=== PATIENT | female | born 1955 | race African-American/Black ===

== ENCOUNTER 2017-03-27 12:15 | Outpatient (CLI) | payer MEDICARE, MEDICAID ==
--- NOTE | 2017-03-27 12:36 | RAD ---
CHEST 2 VIEWS: HISTORY: Cough. FINDINGS: Cardiac silhouette and pulmonary vasculature are unremarkable. Calcified granulomata are consistent with healed granulomatous disease. Mediastinum is midline. There is no confluent airspace consolida tion or evidence of pneumothorax. IMPRESSION: No active cardiopulmonary abnormalities are demonstrated. POS: [facility]
[2017-03-27 12:49] LABS: ALT (SGPT) 15 U/L (8-55); AST (SGOT) 19 U/L (5-34); Alkaline Phosphatase 140 U/L (40-150); Anion Gap 12 mmol/L (10-20); BUN (Urea Nitrogen) 8 mg/dL (9.8-20.1); Bilirubin, Total 0.7 mg/dL (0.2-1.2); Calc. Creatinine Clearance 0 mL/min (70-130); Calcium 10.1 mg/dL (7.8-10.44); Carbon Dioxide 26 mmol/L (23-31); Chloride 106 mmol/L (98-107); Cholesterol 106 mg/dl (< 200 Desired); Estimated GFR-MDRD Greater than 90; Globulin 3.3 g/dL (2.4-3.5); LDL Cholesterol, Calculated 60 mg/dL; Protein, Total 7.3 g/dL (6.0-8.3)
[2017-03-27 12:56] LABS: #Basophils 0.1 thou/uL (0.0-0.2); #Eosinphils 0.1 thou/uL (0.0-0.7); #Lymphocytes 2.9 thou/uL (1.20-3.40); #Monocytes 0.7 thou/uL (0.11-0.59); #Neutrophils 2.8 thou/uL (1.40-6.50); %Basophils 0.9 % (0.0-1.0); %Eosinophils 2.1 % (0.0-10.0); %Lymphocytes 43.5 % (21.0-51.0); %Monocytes 10.9 % (0.0-10.0); Hematocrit 45.7 % (36.0-47.0); Mean Platelet Volume 9.8 fL (7.4-10.4); Red Blood Cell (RBC) Count 5.28 mill/uL (4.20-5.40); White Blood Cell (WBC) Count 6.6 thou/uL (4.8-10.8)
[2017-03-27 14:33] LABS: Hemoglobin A1c 11.3 % (4.0-6.0)
[2017-03-27 15:37] LABS: Microalbumin Urine 11.9 mg/dL (0.5-50.0)
== END 2017-03-27 12:16 | disposition home or self-care (01) ==
LOC: SCSRAD 12:15
PROVIDERS: ATTEND Family Medicine
DX: R05 Cough (principal); E11.59 Type 2 diabetes mellitus with other circulatory complications
CPT/HCPCS: 36415; 71020; 80053; 80061; 82043; 83036; 84439; 84443; 85025

== ENCOUNTER 2018-01-01 09:32 | Outpatient (CLI) | payer MEDICARE, MEDICAID ==
--- NOTE | 2018-01-01 11:19 | MMO ---
BILATERAL DIGITAL SCREENING MAMMOGRAMS: Date: 01/01/18 HISTORY: 62-year-old female presents for digital screening mammogram. COMPARISON: 12/11/15, 11/21/14, and 11/15/13. FINDINGS: This patient's mammogram was interpreted with the assistance of computer-aided detection. The breasts are heterogeneously dense, which can obscure small masses. There are very extensive, typi pj benign, calcifications, including multiple areas of stable clustered microcalcifications bilate rally. Multiple circumscribed masses noted in both breasts, which appear stable. No evidence for dire ct or indirect evidence of malignancy. IMPRESSION: BIRADS 2: Benign Finding(s) Continue routine screening. POS: [facility]
== END 2018-01-01 09:33 | disposition home or self-care (01) ==
LOC: SCSMAMMO 09:32
PROVIDERS: ATTEND Family Medicine
DX: Z12.31 Encounter for screening mammogram for malignant neoplasm of breast (principal)
CPT/HCPCS: 77067

== ENCOUNTER 2018-05-04 21:07 | Observation (INO) | payer MEDICARE, OTHER ==
[2018-05-04] MEDS ORDERED: Nitroglycerin 0.4 MG TAB (25 Tab Bottle) SL PRN (22:07)
[2018-05-04] MEDS ORDERED: Senokot S 8.6-50 MG TAB PO PRN (22:08)
[2018-05-04] MEDS ORDERED: Ondansetron ODT 4 MG TAB PO PRN (22:08)
[2018-05-04] MEDS ORDERED: Dextrose 50% Abboject 50 ML SYRINGE SLOW IVP PRN (22:08)
[2018-05-04] MEDS ORDERED: Bisacodyl 5 MG TAB PO PRN (22:08)
[2018-05-04] MEDS ORDERED: Nitroglycerin 0.4 MG TAB (25 Tab Bottle) PO PRN (22:08)
[2018-05-04] MEDS ORDERED: Dextrose 5% in Water 1,000 ML IV PRN (22:08)
[2018-05-04] MEDS ORDERED: HumaLOG 300 UNITS/3 ML VIAL SC PRN (22:08)
[2018-05-04] MEDS ORDERED: Ondansetron PF 4 MG/2 ML Vial IVP PRN (22:08)
[2018-05-04] MEDS ORDERED: Sodium Chloride 0.9% 1,000 ML IV SCH (22:15)
[2018-05-04] MEDS ORDERED: Acetaminophen 500 MG TAB ONE (22:56)
[2018-05-04 23:45] VITALS: BMI 26.6
[2018-05-05] MEDS: Morphine 4 MG/ML VIAL SLOW IVP PRN ×4 (01:08→22:39)
[2018-05-05 04:46] LABS: #Basophils 0.1 thou/uL (0.0-0.2); #Eosinphils 0.1 thou/uL (0.0-0.7); #Lymphocytes 3.2 thou/uL (1.20-3.40); #Neutrophils 2.5 thou/uL (1.40-6.50); %Basophils 1.2 % (0.0-1.0); %Eosinophils 1.7 % (0.0-10.0); %Lymphocytes 46.6 % (21.0-51.0); %Monocytes 14.4 % (0.0-10.0); %Neutrophils 36.1 % (42.0-75.0); Hemoglobin 13.4 g/dL (12.0-16.0); Mean Corpuscular HGB CONC 32.6 g/dL (32.0-36.0); Mean Corpuscular Hemoglobin 28.9 pg (27.0-31.0); Mean Corpuscular Volume 88.6 fL (78.0-98.0); Mean Platelet Volume 8.8 fL (7.4-10.4); Platelet Count 254 thou/uL (130-400); RBC Distribution Width 12.7 % (11.5-14.5); Red Blood Cell (RBC) Count 4.64 mill/uL (4.20-5.40); White Blood Cell (WBC) Count 6.8 thou/uL (4.8-10.8)
[2018-05-05 05:08] LABS: Anion Gap 11 mmol/L (10-20); BUN (Urea Nitrogen) 12 mg/dL (9.8-20.1); Calc. Creatinine Clearance 96 mL/min (70-130); Calcium 9.6 mg/dL (7.8-10.44); Carbon Dioxide 26 mmol/L (23-31); Cardiac Risk 3.1 (Less than 4.5); Chloride 105 mmol/L (98-107); Estimated GFR-MDRD Greater than 90; Glucose 61 mg/dL (80-115); Potassium 3.4 mmol/L (3.5-5.1); Sodium 139 mmol/L (136-145)
[2018-05-05] MEDS: Nitroglycerin 2% Ointment 1 INCH/1 GM Packet TOP SCH ×3 (06:18→20:59)
--- NOTE | 2018-05-05 07:14 | HP ---
CHIEF COMPLAINT: Chest discomfort and right upper quadrant pain. HISTORY OF PRESENT ILLNESS: This is a 62-year-old female with past medical history significant for coronary artery disease, asthma, diabetes mellitus type 2, hyperlipidemia, hypertension, presenting with chest discomfort and right upper quadrant abdominal pain radiating to the back. Per the patient, she has been having some chest discomfort since 05/02/2018. The patient states that the pain is localized on the right aspect of her chest and also at the right upper quadrant and is radiating to the back. The patient states that nothing seems to help with the pain and the pain is constant. The patient states that she has also been having some mild cough which is productive and some nausea, but she has not vomited. The patient states that she went to [place], and from [place], the patient was transferred to our hospital to be further evaluated because the patient states that she has multiple cardiac comorbidities. At this time, the patient denies any fever, vomiting, dizziness, chills, palpitation, dysuria, hematuria, hematochezia, melena. REVIEW OF SYSTEMS: Positive for cough, chest pain, right upper quadrant pain, otherwise as documented in the HPI, all other systems were reviewed and are negative. PAST MEDICAL HISTORY: Coronary artery disease, asthma, diabetes mellitus, hyperlipidemia, and hypertension. FAMILY HISTORY: Reviewed and noncontributory to this visit. PAST SURGICAL HISTORY: The patient had stents in her lower extremities. The patient had hysterectomy and bilateral knee surgery in the past. PSYCHIATRIC HISTORY: No psych history. SOCIAL HISTORY: The patient smokes tobacco. She said that she cut down the tobacco smoking to half a pack per day. The patient stated that she is trying to quit smoking. The patient denies illicit drug use. The patient denies alcohol use. ALLERGIES: THE PATIENT IS ALLERGIC TO CODEINE VALIUM. CURRENT MEDICATIONS: The patient takes: 1. Atenolol 25 mg. 2. Fenofibrate 150 mg. 3. Isosorbide mononitrate 60 mg. 4. Amlodipine 10 mg. 5. Losartan 100 mg. 6. Aspirin. 7. Crestor 40 mg. 8. Metformin 500 mg. 9. Pantoprazole. 10. Potassium chloride 20 mEq. 11. Bupropion 150 mg. 12. Clonidine patch 0.3 transdermal. 13. Cyclobenzaprine. 14. Jardiance 10 mg. 15. Humalog. 16. Minoxidil 10 mg half a tablet a day. 17. Myrbetriq 25 mg. 18. Nitroglycerin. 19. Lyrica 100 mg. PHYSICAL EXAMINATION: VITAL SIGNS: The patient's blood pressure is 154/84, pulse of 76, respiratory rate of 18, temperature is 98.4, and O2 saturation is 95 on room air. GENERAL: The patient is lying in bed, does not appear to be in any acute distress. The patient is still complaining of pain. Able to speak to me in full sentences. Not in distress. HEENT: Normocephalic, atraumatic. Pupils are equally round and reactive to light. Extraocular movements are intact. No scleral icterus. No conjunctival pallor. Mucous membrane are moist. NECK: Trachea is midline. No JVD. Full range of motion. Supple. LUNGS: Clear to auscultation bilaterally. No wheezing, no rales, no rhonchi appreciated. CHEST: Positive S1 and S2. Regular rate and rhythm. No murmurs, no gallops, no rubs appreciated. ABDOMEN: The patient does have right flank tenderness with palpation. The patient also has right upper quadrant tenderness to palpation. Positive bowel sounds in all quadrants. No ecchymosis. No masses palpated. No peritoneal signs. EXTREMITIES: The patient has 5/5 upper extremity strength with good pulses bilaterally. No edema noted. NEUROLOGIC: Cranial nerves 2 through 12 grossly intact. No neurologic deficits noted. SKIN: Warm, dry, and intact. IMAGING STUDIES: CT of the abdomen and pelvis showed no evidence of acute intraabdominal pelvic abnormalities. There is a left renal cyst and there is atherosclerotic disease. Chest x-ray showed no evidence of acute cardiopulmonary disease. LABORATORY DATA: WBC 6.8, hemoglobin 13.4, hematocrit 41.1, and platelet count is 254. Sodium is 139, potassium is 3.4, chloride is 105, carbon dioxide of 26, anion gap of 11, BUN is 12, creatinine is 0.68, and glucose is 61. Troponin 0.028 and 0.026. ASSESSMENT AND PLAN: This is a 62-year-old female, being admitted for: 1. Atypical chest pain. At this point, the patient has been admitted. We are trending troponins. We will follow up in the morning. We will get echo. We will consult the Cardiology. The patient will get a right upper quadrant ultrasound as well to rule out any other pathologies of the right upper quadrant. We will continue the patient on her home medications. We will continue p.r.n. pain medications. 2. Coronary artery disease. At this time, we will continue the patient on home medications, and we will monitor the patient closely. The patient is currently stable. 3. History of asthma, currently stable. We will continue the patient on her home medications. 4. History of diabetes mellitus type 2. Currently, the patient's blood glucose is low. We will continue the patient on insulin sliding scale and we will monitor the patient's blood glucose. 5. Hyperlipidemia. Continue the patient on her home medications. 6. Hypertension. We will continue the patient on home medication. 7. Deep venous thrombosis and gastrointestinal prophylaxis. Job ID: [id number]
--- NOTE | 2018-05-05 08:04 | ULT ---
RIGHT UPPER QUADRANT ULTRASOUND: Date: 05/05/18 HISTORY: Pain FINDINGS: Liver echogenicity is slightly coarse. There appear to be some multiple opacities within the gallblad gill, evidence for multiple gallstones, with possible sludge. Common bile duct 0.4 cm. No overt gallbl adder wall thickening or pericholecystic fluid. medical technologist prn indicates a positive Kennedy's sign. Pancreas is mostly obscured. Right kidney is unremarkable. IMPRESSION: Evidence for cholelithiasis without ductal dilatation. Somewhat coarse liver echogenicity. No ductal dilatation. Obscured pancreas. POS: [facility]
[2018-05-05] MEDS: Potassium Chloride 20 MEQ TAB PO SCH (08:34)
[2018-05-05] MEDS: Amlodipine 10 MG TAB PO SCH (08:35)
[2018-05-05] MEDS: Furosemide 20 MG TAB PO SCH ×2 (08:35→14:42)
[2018-05-05] MEDS: Bupropion 150 MG SR TAB PO SCH ×2 (08:36→20:55)
[2018-05-05] MEDS: Losartan/Hydrochlorothiazide 100 mg/25 mg Tablet PO SCH (08:36)
[2018-05-05] MEDS: Atenolol 50 MG TAB PO SCH ×2 (08:36→20:58)
[2018-05-05] MEDS ORDERED: Aspirin 81 mg Enteric Coated Tablet PO SCH (09:00)
[2018-05-05] MEDS ORDERED: cloNIDine 0.1mg/24 Hour PATCH TD SCH (09:00)
[2018-05-05] MEDS: HumaLOG 300 UNITS/3 ML VIAL SC PRN (12:08)
[2018-05-05] MEDS: Aspirin 81 mg Enteric Coated Tablet PO SCH (12:08)
[2018-05-05] MEDS: Enoxaparin Sodium 40 MG/0.4 ML SYRINGE SC SCH (14:42)
[2018-05-05] MEDS: Clopidogrel Bisulfate 75 MG TAB PO SCH (14:42)
[2018-05-05] MEDS: Pregabalin 50 MG CAP PO SCH (20:55)
[2018-05-05] MEDS: Rosuvastatin 20 MG TAB PO SCH (20:58)
[2018-05-06] MEDS: Morphine 4 MG/ML VIAL SLOW IVP PRN ×2 (04:31→13:28)
[2018-05-06] MEDS: Nitroglycerin 2% Ointment 1 INCH/1 GM Packet TOP SCH (04:33)
[2018-05-06 06:17] LABS: Anion Gap 13 mmol/L (10-20); BUN (Urea Nitrogen) 11 mg/dL (9.8-20.1); Calc. Creatinine Clearance 78 mL/min (70-130); Calcium 9.9 mg/dL (7.8-10.44); Carbon Dioxide 29 mmol/L (23-31); Chloride 101 mmol/L (98-107); Estimated GFR-MDRD 85; Glucose 136 mg/dL (80-115); Potassium 3.7 mmol/L (3.5-5.1); Sodium 139 mmol/L (136-145)
--- NOTE | 2018-05-06 09:55 | PDOC.PN ---
- Subjective Encounter Start Date: 05/06/18 Encounter Start Time: 09:54 Pain located RUQ, intermittant, better with morphine, then returns. Pain has been present for 4-5 days intermittantly. No nausea. Cough improved. - Objective Resuscitation Status - Order Detail: 05/04/18 22:08 Resuscitation Status Routine Resuscitation Status: FULL: Full Resuscitation Vital Signs & Weight: Vital Signs (12 hours) Temp Pulse Resp BP BP Pulse Ox 05/06/18 07:52 98.1 F 70 16 142/68 H 92 L 05/06/18 04:16 98.6 F 71 18 142/69 H 94 L 05/05/18 23:45 99.5 F 73 16 148/66 H 91 L Weight Weight 156 lb 4.8 oz I&O: 05/05/18 05/06/18 05/07/18 06:59 06:59 06:59 Intake Total 240 690 Output Total 350 1200 Balance -110 -510 Result Diagrams: 05/05/18 04:34 05/06/18 05:39 Additional Labs: Accuchecks 05/05/18 05/05/18 05/05/18 21:05 17:20 10:15 POC Glucose 107 148 H 207 H Phys Exam - Physical Examination Constitutional: NAD HEENT: PERRLA Neck: supple, full ROM Fair aeration Cardiovascular: RRR Mildly tender RUQ, worse with inspiration/movement Musculoskeletal: no edema Neurological: non-focal Psychiatric: normal affect, A&O x 3 Skin: no rash Dx/Plan (1) Right upper quadrant abdominal pain Code(s): R10.11 - RIGHT UPPER QUADRANT PAIN Status: Acute Plan: LFTs from outside ER were normal. RUQ ultrasound reviewed: cholelithiasis, no ductal dilitation, gallstones and possible sludge. In context of diabetes, suspect gallstone disease may explain her symptoms. No pericholecystic fluid, however. Unsure if HIDA might be helpful, will discuss with General surgery for opinion. (2) Chest pain Code(s): R07.9 - CHEST PAIN, UNSPECIFIED Status: Acute Plan: Cardiac biomarkers unremarkable. Echo ordered, report pending. Location on exam more compatible with RUQ (3) CAD (coronary artery disease) Code(s): I25.10 - ATHSCL HEART DISEASE OF [place] CORONARY ARTERY W/O ANG PCTRS Status: Chronic (4) DM2 (diabetes mellitus, type 2) Status: Chronic (5) HTN (hypertension) Code(s): I10 - ESSENTIAL (PRIMARY) HYPERTENSION Status: Chronic (6) PAD (peripheral artery disease) Code(s): I73.9 - PERIPHERAL VASCULAR DISEASE, UNSPECIFIED Status: Chronic - Plan * . Discuss with general surgery, consider HIDA scan.
[2018-05-06] MEDS: Aspirin 81 mg Enteric Coated Tablet PO SCH (10:05)
[2018-05-06] MEDS: Atenolol 50 MG TAB PO SCH ×2 (10:06→23:28)
[2018-05-06] MEDS: Furosemide 20 MG TAB PO SCH ×2 (10:06→13:30)
[2018-05-06] MEDS: Bupropion 150 MG SR TAB PO SCH ×2 (10:06→23:27)
[2018-05-06] MEDS: Clopidogrel Bisulfate 75 MG TAB PO SCH (10:06)
[2018-05-06] MEDS: Amlodipine 10 MG TAB PO SCH (10:06)
[2018-05-06] MEDS: Enoxaparin Sodium 40 MG/0.4 ML SYRINGE SC SCH (10:06)
[2018-05-06] MEDS: Losartan/Hydrochlorothiazide 100 mg/25 mg Tablet PO SCH (10:06)
[2018-05-06] MEDS: Potassium Chloride 20 MEQ TAB PO SCH (10:07)
[2018-05-06] MEDS ORDERED: Ketorolac Tromethamine 30 MG/ML VIAL IVP PRN (10:54)
[2018-05-06] MEDS ORDERED: Scopolamine 1.5 mg/72 hour Patch TD SCH (11:00)
[2018-05-06] MEDS ORDERED: Ketorolac Tromethamine 30 MG/ML VIAL IVP SCH (11:00)
[2018-05-06] MEDS ORDERED: Sodium Chloride 0.9% 1,000 ML IV SCH (11:00)
--- NOTE | 2018-05-06 11:36 | HP ---
HISTORY OF PRESENT ILLNESS: Kiara Vargas is a 62-year-old black female, who presents with right upper quadrant pain, back radiation. Ultrasound reveals gallstones, normal bile duct caliber. Liver function tests are normal. Basic metabolic profile normal. She is admitted by the Medical Service. An echocardiogram is normal. The patient reports never had a myocardial infarction. She did have 2 stents placed, one in 2014 and one in [address] Bone. She is followed by Dr. Bone, last having seen him in October 2017 and she was told at that time, she is doing well, she denies any cardiac symptomatology. ALLERGIES: SHE REPORTS NO ALLERGIES, BUT VALIUM DOES MAKE HER "CRAZY IN THE HEAD" AND CODEINE MAKES HER "OVERLY ACTIVE," BUT SHE IS NOT ALLERGIC TO THEM. SOCIAL HISTORY: Tobacco 1/2 pack per day. Alcohol, none. MEDICATIONS: 1. Aspirin daily. 2. Amlodipine 10 mg a day. 3. Wellbutrin 150 mg a day. 4. Plavix daily. 5. Clonidine patch weekly. 6. Jardiance 10 mg daily. 7. Fenofibrate 145 mg a day. 8. Insulin 70 units b.i.d. 9. Subcu isosorbide mononitrate 120 mg IM. 10. Losartan daily, 100/25. 11. Minoxidil 5 mg at bedtime. 12. Metformin 500 b.i.d. 13. Nitroglycerin p.r.n. 14. Protonix 40 mg a day. 15. Potassium chloride daily. 16. Lyrica t.i.d. 17. Rosuvastatin at bedtime. PAST SURGICAL HISTORY: Hysterectomy with oophorectomy. She is up to date on her colonoscopy. She had a right knee arthroscopy in the past. PAST MEDICAL HISTORY: Coronary artery disease, stable. Cardiac stents placed in [address] Bone, last having seen him in October 2017. Echocardiogram this hospitalization, normal. Hypertension and diabetes mellitus, insulin dependent. SOCIAL HISTORY: The patient lives with her brother in [place]. She is active, independently ambulatory. REVIEW OF SYSTEMS: [place], otherwise noncontributory. PHYSICAL EXAMINATION: GENERAL: Height 5 feet 5 inches, weight 156 pounds, 26 BMI, temperature 98.1, pulse 70, and blood pressure 142/68. HEAD, EARS, EYES, NOSE AND THROAT: Unremarkable. LUNGS: Clear to auscultation. CARDIAC: Regular rate and rhythm without murmur or gallop. ABDOMEN: Soft, mild tenderness in right upper quadrant. No guarding or rebound. EXTREMITIES: Unremarkable. LABORATORY DATA: Laboratories as noted. ASSESSMENT AND PLAN: Cholecystitis, cholelithiasis. Recommend laparoscopic video cholecystectomy. Risks of infection, bleeding, visceral and biliary injury, open procedure discussed. Questions answered. Job ID: [id number]
[2018-05-06] MEDS ORDERED: Bupivacaine HCl 0.5%/Epinephrine 1:200,000/PF 30 ml Vial ONE ×2 (19:37→20:15)
[2018-05-06] MEDS ORDERED: Fentanyl 100 MCG/2 ML VIAL ONE ×2 (20:14→21:51)
[2018-05-06] MEDS ORDERED: Acetaminophen 500 MG TAB PO PRN (20:36)
[2018-05-06] MEDS ORDERED: traMADol HCl 50 MG TAB PO PRN ×2 (20:36)
[2018-05-06] MEDS ORDERED: Dexamethasone 20 MG/5 ML VIAL ONE (20:55)
[2018-05-06] MEDS ORDERED: ePHEDrine/0.9% NaCl/PF SYRINGE 50 mg/10 ml ONE (20:55)
[2018-05-06] MEDS ORDERED: PHENYLEPHRINE-NS 100 MCG/ML 10 ML SYRINGE ONE (20:55)
[2018-05-06] MEDS ORDERED: Ondansetron PF 4 MG/2 ML Vial ONE (20:55)
[2018-05-06] MEDS ORDERED: Lidocaine 1% PF 5 ML VIAL ONE (20:55)
[2018-05-06] MEDS ORDERED: PROPOFOL 200 MG/20 ML VIAL ONE (20:55)
[2018-05-06] MEDS ORDERED: Glycopyrrolate 0.2 MG/ML 5 ML SYRINGE ONE (20:55)
[2018-05-06] MEDS ORDERED: hydrALAZINE 20 MG/ML VIAL ONE (21:31)
[2018-05-06] MEDS ORDERED: Ondansetron HCl/PF 4 MG/2 ML Vial IVP PRN (21:52)
[2018-05-06] MEDS ORDERED: Promethazine HCl 25 MG/ML VIAL IM PRN (21:52)
[2018-05-06] MEDS ORDERED: Promethazine HCl 25 MG/ML VIAL SLOW IVP PRN (21:52)
[2018-05-06] MEDS: Rosuvastatin 20 MG TAB PO SCH (23:27)
[2018-05-06] MEDS: Pregabalin 50 MG CAP PO SCH (23:27)
--- NOTE | 2018-05-07 01:19 | OP ---
DATE OF PROCEDURE: 05/06/2018 PREOPERATIVE DIAGNOSES: Cholecystitis and cholelithiasis. POSTOPERATIVE DIAGNOSES: Cholecystitis and cholelithiasis. PROCEDURE PERFORMED: Laparoscopic video cholecystectomy. ANESTHESIA: General, local 0.5% Marcaine with epinephrine 30 mL. DESCRIPTION OF PROCEDURE: The patient was taken to the operating room, where under general anesthesia, abdomen was prepared with ChloraPrep and draped in routine fashion. Local anesthetic 0.5% Marcaine with epinephrine was infiltrated in the skin and subcutaneous tissue at each port site. Infraumbilical incision was made. Pneumoperitoneum to 15 mmHg was obtained with Veress needle, replaced with a 5 port, and the laparoscope inserted. Right subxiphoid incision was made and 11 port placed, right subcostal incision was made, midclavicular and anterior axillary line, the 5 port was placed. Liver appeared to be normal. Gallbladder wall was thickened and inflamed. Fundus of the gallbladder was grasped at the cephalad. The infundibulum was grasped and reflected laterally. Cystic artery and duct dissected free. Critical view obtained. Cystic artery and duct double clipped proximally and divided. Gallbladder was dissected free from liver bed, obtaining good hemostasis prior to division of the final peritoneal attachments. Gallbladder and stones removed and submitted to Pathology. Good hemostasis assured. Irrigant and pneumoperitoneum evacuated. All instruments were removed, and all skin incisions were approximated with interrupted subdermal 4-0 Monocryl and Lennox glue applied. Job ID: [id number]
[2018-05-07] MEDS: HumaLOG 300 UNITS/3 ML VIAL SC PRN (06:19)
[2018-05-07] MEDS: Losartan/Hydrochlorothiazide 100 mg/25 mg Tablet PO SCH (08:38)
[2018-05-07] MEDS: Amlodipine 10 MG TAB PO SCH (08:38)
[2018-05-07] MEDS: Potassium Chloride 20 MEQ TAB PO SCH (08:38)
[2018-05-07] MEDS: Aspirin 81 mg Enteric Coated Tablet PO SCH (08:38)
[2018-05-07] MEDS: Furosemide 20 MG TAB PO SCH (08:38)
[2018-05-07] MEDS: Bupropion 150 MG SR TAB PO SCH (08:39)
[2018-05-07] MEDS: Clopidogrel Bisulfate 75 MG TAB PO SCH (08:39)
[2018-05-07] MEDS: Enoxaparin Sodium 40 MG/0.4 ML SYRINGE SC SCH (08:39)
[2018-05-07] MEDS: Atenolol 50 MG TAB PO SCH (08:39)
[2018-05-07] MEDS ORDERED: Polyethylene Glycol 3350 17 GM Packet PO SCH (09:00)
[2018-05-07 11:38] VITALS: BP 134/63; TEMP 98.5
--- NOTE | 2018-05-08 11:37 | DIS ---
DATE OF ADMISSION: 05/04/2018 DATE OF DISCHARGE: 05/07/2018 CHIEF COMPLAINT/REASON FOR ADMISSION: Chest discomfort and right upper quadrant pain. DIAGNOSES ON ADMISSION: 1. Atypical chest pain. 2. Coronary artery disease. 3. History of asthma. 4. History of type 2 diabetes. 5. Dyslipidemia. 6. Essential hypertension. DISCHARGE DIAGNOSES: 1. Acute cholecystitis. 2. Cholelithiasis, with presentation of right upper quadrant pain. 3. History of coronary artery disease, no evidence of acute coronary syndrome. 4. History of asthma, stable. 5. History of type 2 diabetes. 6. Dyslipidemia. 7. Essential hypertension. 8. Incidentally noted asymptomatic left renal cyst. CONSULTS DURING HOSPITAL STAY: General Surgery, Adria Bennett MD. STUDY/PROCEDURES: 1. 05/06/2018, laparoscopic cholecystectomy. 2. 05/05/2018, 2D echocardiogram, left ventricular size is normal. Ejection fraction is 60% to 65%. Moderate concentric left ventricular hypertrophy. Moderate aortic insufficiency. Trace tricuspid regurgitation. PERTINENT LAB/STUDIES: Abdominal ultrasound showed evidence of cholelithiasis without ductal dilatation. Common bile duct 0.4 mm. No pericholecystic fluid present. HOSPITAL COURSE: Ms. Vargas is a very pleasant 62-year-old female, with a medical history of coronary artery disease, asthma, type 2 diabetes, dyslipidemia, hypertension, presenting for chest discomfort and right upper quadrant abdominal pain radiating to the back. The pain had been intermittently since 05/02/2018. Pain localizing right aspect of chest, right upper quadrant of the abdomen, radiating to her back. She had also noted some mild cough as well as nausea. Cardiac biomarkers done during hospital stay showed no evidence of acute coronary syndrome. Abdominal ultrasound showed evidence of cholelithiasis without ductal dilatation. Common bile duct 0.4 mm. No pericholecystic fluid present. Surgical consultation obtained on 05/06/2018, the patient noted persistent symptoms. She was subsequently transitioned to the operating room, with surgical findings of cholecystitis and cholelithiasis. On the following day, the patient seen and examined by me. Incision sites are clean, dry. She is somewhat sore after surgery, but tolerating a diet, ambulating in the halls, and in general feels much improved. Her lungs are clear to auscultation bilaterally, heart is regular rate and rhythm. She was stable for transition to home. MEDICATIONS AT DISCHARGE: New medication: 1. Tramadol 50 mg one p.o. q.4 hourly p.r.n. pain, dispensing 20 tablets. 2. Atenolol 25 mg p.o. daily. 3. Fenofibrate 150 mg p.o. daily. 4. Isosorbide mononitrate 60 mg p.o. daily. 5. Amlodipine 10 mg p.o. daily. 6. Losartan 100 mg p.o. daily. 7. Aspirin 81 mg p.o. daily. 8. Crestor 40 mg p.o. at bedtime. 9. Metformin 500 mg p.o. daily. 10. Pantoprazole 40 mg p.o. daily. 11. Potassium chloride 20 mEq p.o. daily. 12. Bupropion 150 mg p.o. daily. 13. Clonidine patch 0.3 transdermal. 14. Cyclobenzaprine p.r.n. muscle spasm. 15. Jardiance 10 mg p.o. daily. 16. Humalog sliding scale. 17. Minoxidil 5 mg p.o. daily. 18. Myrbetriq 25 mg p.o. daily. 19. Lyrica 100 mg p.o. daily. 20. Nitroglycerin 0.4 mg sublingual p.r.n. chest pain. DIET: Diabetic/heart healthy. ACTIVITY: As tolerated. FOLLOWUP: She is to follow up with Dr. Bennett in 2 weeks for postoperative visit, I discussed with the patient calling his office to have this confirmed on a date and time that will work for her and her schedule. She demonstrates understanding. No further questions at the end of her interview today. Total discharge time was 35 minutes. Job ID: [id number]
--- NOTE | 2018-05-08 18:11 | EKG ---
Test Reason : Blood Pressure : / mmHG Vent. Rate : 074 BPM Atrial Rate : 074 BPM P-R Int : 184 ms QRS Dur : 084 ms QT Int : 422 ms P-R-T Axes : 056 -25 148 degrees QTc Int : 468 ms Normal sinus rhythm Voltage criteria for left ventricular hypertrophy T wave abnormality, consider lateral ischemia Abnormal ECG Motion artifact V4-V6 Confirmed by OLEG FONSECA DO ([id number]), videotape editor ALVARO PALMER ([id number]) on 05/08/2018 6:11:02 PM Referred By: Confirmed By:OLEG FONSECA DO
[2018-05-10] MEDS ORDERED: cloNIDine 0.1mg/24 Hour PATCH TD SCH (09:00)
[2018-05-11] MEDS ORDERED: Ibuprofen 600 MG TAB PO PRN (20:36)
== END 2018-05-07 14:20 | disposition home or self-care (01) ==
LOC: ERS 21:07 → 2SW 22:05
PROVIDERS: ADMIT Internal Medicine; ATTEND Internal Medicine
PROC: 0FT44ZZ Resection of Gallbladder, Percutaneous Endoscopic Approach (ICD-10-PCS; principal; 2018-05-06)
DX: K81.1 Chronic cholecystitis (principal); D13.5 Benign neoplasm of extrahepatic bile ducts; R07.89 Other chest pain; I25.10 Atherosclerotic heart disease of native coronary artery without angina pectoris; I10 Essential (primary) hypertension; I73.9 Peripheral vascular disease, unspecified; E11.9 Type 2 diabetes mellitus without complications; E78.5 Hyperlipidemia, unspecified; J45.909 Unspecified asthma, uncomplicated; F17.210 Nicotine dependence, cigarettes, uncomplicated; N28.1 Cyst of kidney, acquired; Z88.5 Allergy status to narcotic agent; Z88.8 Allergy status to other drugs, medicaments and biological substances; Z95.5 Presence of coronary angioplasty implant and graft; Z90.710 Acquired absence of both cervix and uterus; Z90.721 Acquired absence of ovaries, unilateral; Z79.82 Long term (current) use of aspirin; Z79.4 Long term (current) use of insulin; Z79.02 Long term (current) use of antithrombotics/antiplatelets; Z79.899 Other long term (current) drug therapy; Z98.890 Other specified postprocedural states
CPT/HCPCS: 47562; 76705; 80048 ×2; 80061; 82962 ×4; 83735; 84484 ×3; 85025; 93005; 93306; 94760 ×2; 96361; 96372 ×2; 96374; 96375; 96376 ×2; 99285; 99406; G0378 ×3; 36415; 36416; 88304; J0360; J0670; J1100; J1650; J1885; J1956; J2001; J2270; J2405; J2704; J3010

== ENCOUNTER 2018-07-21 09:46 | Outpatient (CLI) | payer MEDICARE, MEDICAID ==
--- NOTE | 2018-07-21 10:37 | BD ---
DEXA BONE DENSITY STUDY: HISTORY: Postmenopausal. LUMBAR SPINE BMD (g/cm2) T-SCORE L1 1.084 +0.9 L2 1.059 +0.3 L3 1.015 -0.6 L4 1.290 +2.1 TOTAL 1.121 +0.7 LEFT FEMORAL NECK 0.757 -0.8 TOTAL 0.905 -0.3 IMPRESSION: Normal bone mineral density of the lumbar spine and left femoral neck. POS: [facility]
== END 2018-07-21 09:47 | disposition home or self-care (01) ==
LOC: BICMAMMO 09:46
PROVIDERS: ATTEND Family Medicine
DX: Z13.820 Encounter for screening for osteoporosis (principal); Z78.0 Asymptomatic menopausal state
CPT/HCPCS: 77080

== ENCOUNTER 2018-09-07 11:52 | Emergency (ER) | payer MEDICARE, OTHER ==
[2018-09-07] MEDS ORDERED: Ketorolac Tromethamine 30 MG/ML VIAL ONE (12:10)
--- NOTE | 2018-09-07 12:25 | RAD ---
XR Knee Lt 4 View STANDARD History: [Pain] Comparison: None. Findings: There are severe tricompartmental degenerative changes. There is osseous remodeling of the lateral compartment. Large osteophyte formation. There is a large ossified body within the suprapatellar recess. Moderate joint effusion. Mild prepate llar soft tissue swelling. Impression: Severe degenerative changes with a large suprapatellar 3 cm osseous body.
== END 2018-09-07 12:27 | disposition home or self-care (01) ==
LOC: SCSER 11:52
DX: M25.562 Pain in left knee (principal); I25.10 Atherosclerotic heart disease of native coronary artery without angina pectoris; J45.909 Unspecified asthma, uncomplicated; E11.9 Type 2 diabetes mellitus without complications; E78.5 Hyperlipidemia, unspecified; I10 Essential (primary) hypertension; F17.210 Nicotine dependence, cigarettes, uncomplicated
CPT/HCPCS: 96372; J1885

== ENCOUNTER 2019-03-11 19:28 | Inpatient (IN) | payer MEDICARE, OTHER ==
[2019-03-11] MEDS ORDERED: hydrALAZINE 20 MG/ML VIAL SLOW IVP PRN (21:35)
[2019-03-11] MEDS ORDERED: Ondansetron PF 4 MG/2 ML Vial IVP PRN (21:35)
[2019-03-11] MEDS ORDERED: HumaLOG 300 UNITS/3 ML VIAL SC PRN (21:35)
[2019-03-11] MEDS ORDERED: Labetalol HCl 100 MG/20 ML VIAL SLOW IVP PRN (21:35)
[2019-03-11] MEDS ORDERED: Dextrose 5% in Water 1,000 ML IV PRN (21:35)
[2019-03-11] MEDS ORDERED: Ondansetron ODT 4 MG TAB PO PRN (21:35)
[2019-03-11] MEDS ORDERED: Dextrose 50% Abboject 50 ML SYRINGE SLOW IVP PRN (21:35)
[2019-03-11 23:28] VITALS: BMI 25.9
--- NOTE | 2019-03-12 00:46 | HP ---
PRIMARY CARE PHYSICIAN: Jarred Schulte MD CHIEF COMPLAINT: Facial droop. HISTORY OF PRESENT ILLNESS: This is a 63-year-old female, who presented to [facility] Emergency Department after a neighbor noted her face drooping on the right side. The patient states she apparently woke up with the condition and was unaware that her face was drooping on the right. The patient denied any recent fall, trauma, injury, change to her chronic medication regimen, recent travel, or exposure history. The patient does admit to history of TIAs in the past x2, as well as coronary artery disease and peripheral vascular disease. The patient states she takes aspirin and Plavix on a regular basis and has been compliant with this regimen. The patient did feel heaviness on the right side of her face with some drooling and difficulty closing her right eye. The patient states she was last normal around 11:00 p.m. on 03/10/2019. The patient denied any associated difficulty with speech, swallowing, or extremity weakness. In the emergency room, the patient underwent general evaluation including CT imaging of the brain showing no acute process. CT angiogram was also performed showing no focal stenosis. The patient received aspirin and was referred to the Hospitalist Service for admission. PAST MEDICAL HISTORY: 1. Tobacco abuse. 2. Coronary artery disease. 3. Peripheral vascular disease. 4. Diabetes mellitus, type 2. 5. Hyperlipidemia. 6. Hypertension. 7. History of TIA x2. 8. History of acute cholecystitis. PAST SURGICAL HISTORY: 1. Status post bilateral vascular stent placement. 2. Status post hysterectomy. 3. Status post cholecystectomy. 4. Status post bilateral knee surgery. CURRENT MEDICATIONS: Based on previous review of the medical record: 1. Atenolol 25 mg p.o. b.i.d. 2. Fenofibrate 150 mg p.o. daily. 3. Amlodipine 10 mg p.o. daily. 4. Aspirin 81 mg p.o. daily. 5. Crestor 40 mg p.o. daily. 6. Metformin 500 mg p.o. b.i.d. 7. Protonix 40 mg p.o. daily. 8. Potassium chloride 20 mEq p.o. daily. 9. Bupropion 150 mg p.o. daily. 10. Clonidine 0.3 mg per 24 hour transdermally weekly. 11. Jardiance 10 mg p.o. daily. 12. Humalog 75/25, 70 units subcutaneously b.i.d. 13. Minoxidil 5 mg p.o. at bedtime. 14. Myrbetriq 25 mg p.o. daily. 15. Lyrica 100 mg p.o. daily. 16. Losartan/hydrochlorothiazide 100/25 mg 1 tablet p.o. daily. ALLERGIES: CODEINE, VALIUM, AND ACETAMINOPHEN. FAMILY HISTORY: Positive for diabetes mellitus and hypertension. SOCIAL HISTORY: The patient resides with her brother. Smokes up to half a pack of cigarettes daily. No alcohol or illicit drug use. Functional of all activities of daily living. Walks without assistive device. REVIEW OF SYSTEMS: CONSTITUTIONAL: Negative for weight loss or gain, ability to conduct usual activities. SKIN: Negative for rash, itching. EYES: Negative for double vision, pain. ENT/MOUTH: Negative for nose bleeding, neck stiffness, pain, tenderness. CARDIOVASCULAR: Negative for palpitations, dyspnea on exertion, orthopnea. RESPIRATORY: Negative for shortness of breath, wheezing, cough, hemoptysis, fever or night sweats. GASTROINTESTINAL: Negative for poor appetite, abdominal pain, heartburn, nausea, vomiting, constipation, or diarrhea. GENITOURINARY: Negative for urgency, frequency, dysuria, nocturia. MUSCULOSKELETAL: Negative for pain, swelling. NEUROLOGIC/PSYCHIATRIC: Negative for anxiety, depression. ALLERGY/IMMUNOLOGIC: Negative for skin rash, bleeding tendency. Otherwise negative except as stated per HPI. PHYSICAL EXAMINATION: VITAL SIGNS: On admission, blood pressure 201/95, pulse 71, respiratory rate 14, temperature 98.3 degrees Fahrenheit, O2 saturation 98% on room air. GENERAL APPEARANCE: This is a 63-year-old female, alert and oriented x3, pleasant, responsive, in no acute distress. HEENT: Pupils are equal, round, reactive to light and accommodation. Extraocular muscles are intact. No scleral icterus. No conjunctival injection. Nares patent. OP is clear. Teeth in fair repair. NECK: Supple. No cervical adenopathy. No thyromegaly. No carotid bruits. No JVD appreciated. Cervical spine with full active and passive range of motion. No meningeal signs noted. CHEST: Lungs are clear to auscultation bilaterally. CARDIOVASCULAR EXAM: S1, S2 without noted murmur, rub, or gallop. ABDOMEN: Rounded, soft, nontender, and nondistended. Bowel sounds are positive in all 4 quadrants. There is no hepatosplenomegaly. No abdominal bruits. No rebound or guarding appreciated. EXTREMITIES: Warm and dry with fair turgor. No clubbing, cyanosis, or asymmetric edema appreciated. Pulses palpable distally at the dorsalis pedis, posterior tibial, and popliteal arteries bilaterally. Capillary refill less than 2 seconds. NEUROLOGIC: Left hand dominant. Alert and oriented x3. Right facial asymmetry noted. No other gross focal neurologic deficits appreciated. PERTINENT LABORATORY AND X-RAY FINDINGS: Basic metabolic profile within normal limits. LFTs within normal limits. CBC within normal limits. PT 13.9, INR 1.1, PTT 32.9. Urinalysis positive for glucose. CT of the brain without contrast dated 03/11/2019, showed no acute intracranial process. CT angiogram of the head and neck dated 03/11/2019, showed no focal stenosis. Thyroid nodules noted. ASSESSMENT AND PLAN: 1. Transient ischemic attack/cerebrovascular accident with right facial asymmetry. The patient will be admitted to the stroke unit. We will continue aspirin 325 mg daily. Confirm home regimen to include Plavix. Consult Neurology Service for any further recommendations. Check MRI of the brain in the a.m., as well as 2D transthoracic echocardiogram. Continue general stroke protocol. The patient apparently on dual antiplatelet therapy prior to this admission. Check fasting lipid profile in the a.m. 2. Hypertensive urgency. We will continue permissive hypertension in the context of acute cerebrovascular accident/transient ischemic attack. Confirm home antihypertensive regimen and resume in the next 24 hours. 3. Hyperlipidemia. Check fasting lipid profile in the a.m. Continue Lipitor 40 mg p.o. daily. 4. Coronary artery disease, chronic and stable. Resume home regimen to include anti-platelet therapy. 5. Diabetes mellitus type 2, insulin requiring. Insulin sliding scale for reflexive coverage. Confirm home insulin regimen. ADA diet. Serial Accu-Cheks before meals and at bedtime. 6. Prophylaxis. SCDs while in bed. Pepcid 20 mg p.o. b.i.d. 7. Code status is full. Surrogate medical decision maker is the patient's sister. Job ID: [id number]
[2019-03-12 05:09] LABS: Band 4 % (5-11); Eosinophils 2 % (0-10); Hemoglobin 13.1 g/dL (12.0-16.0); Lymphocytes 32 % (21-51); MDiff Complete? YES; Mean Corpuscular HGB CONC 32.9 g/dL (32.0-36.0); Mean Corpuscular Hemoglobin 28.7 pg (27.0-31.0); Mean Corpuscular Volume 87.2 fL (78.0-98.0); Mean Platelet Volume 8.5 fL (7.4-10.4); Monocytes 13 % (0-10); Neutrophil 47 % (42-75); Platelet Count 256 thou/uL (130-400); Platelet Morphology Comment Appears Adequate; RBC Distribution Width 13.6 % (11.5-14.5); RBC Morphology Normal; Reactive Lymphocytes 2 % (0-10); Red Blood Cell (RBC) Count 4.58 mill/uL (4.20-5.40); White Blood Cell (WBC) Count 6.9 thou/uL (4.8-10.8)
[2019-03-12 05:12] LABS: Anion Gap 11 mmol/L (10-20); BUN (Urea Nitrogen) 8 mg/dL (9.8-20.1); Calc. Creatinine Clearance 91 mL/min (70-130); Calcium 9.8 mg/dL (7.8-10.44); Carbon Dioxide 23 mmol/L (23-31); Cardiac Risk 3.3 (Less than 4.5); Chloride 111 mmol/L (98-107); Cholesterol 130 mg/dl (< 200 Desired); Estimated GFR-MDRD Greater than 90; Glucose 129 mg/dL (80-115); HDL Cholesterol 39 mg/dL (>60 Neg Risk); LDL Cholesterol, Calculated 76 mg/dL; Potassium 3.5 mmol/L (3.5-5.1); Sodium 141 mmol/L (136-145); Triglycerides 74 mg/dL (Less than 150)
[2019-03-12] MEDS ORDERED: Losartan/Hydrochlorothiazide 100 mg/25 mg Tablet PO SCH (09:00)
[2019-03-12] MEDS ORDERED: Empagliflozin [Jardiance] 10 MG PO SCH (09:00)
[2019-03-12] MEDS ORDERED: Non-Formulary Item 1 EACH (Pregabalin [Lyrica] 100 MG) PO SCH (09:00)
[2019-03-12] MEDS ORDERED: cloNIDine 0.1mg/24 Hour PATCH TD SCH (09:00)
[2019-03-12] MEDS ORDERED: Non-Formulary Item 1 EACH (Empagliflozin [Jardiance] 10 MG) PO SCH (09:00)
[2019-03-12] MEDS ORDERED: POTASSIUM CHLORIDE PO SCH (09:00)
[2019-03-12] MEDS: HumaLOG 300 UNITS/3 ML VIAL SC SCH ×2 (09:32→21:37)
[2019-03-12] MEDS: Pregabalin 50 MG CAP PO SCH ×3 (09:34→21:30)
[2019-03-12] MEDS: Clopidogrel Bisulfate 75 MG TAB PO SCH (09:34)
[2019-03-12] MEDS: Potassium Chloride 20 MEQ TAB PO SCH (09:36)
[2019-03-12] MEDS: Atenolol 50 MG TAB PO SCH ×2 (09:36→22:31)
[2019-03-12] MEDS: Amlodipine 10 MG TAB PO SCH (09:37)
[2019-03-12] MEDS: Famotidine 20 MG TAB PO SCH ×2 (09:37→21:30)
[2019-03-12] MEDS: Fenofibrate Nanocrystallized 145 MG TAB PO SCH (09:37)
[2019-03-12] MEDS: Bupropion 150 MG SR TAB PO SCH (09:37)
[2019-03-12] MEDS: Aspirin 325 mg Enteric Coated Tablet PO SCH (09:38)
--- NOTE | 2019-03-12 10:57 | MRI ---
MRI Brain WO Con: 03/12/2019 9:35 PM CLINICAL HISTORY: Stroke. COMPARISON: None. FINDINGS: Extra axial spaces: Normal in size and morphology for the patient's age. Acute infarction: None. Ventricular system: Normal in size and morphology for the patient's age. Basal cisterns: Normal. Cerebral parenchyma: Normal. Midline shift: None. Cerebellum: Normal. Brainstem: Normal. Paranasal sinuses:Clear IMPRESSION:No acute intracranial abnormality.
[2019-03-12] MEDS: HumaLOG 300 UNITS/3 ML VIAL SC PRN ×2 (11:53→18:14)
--- NOTE | 2019-03-12 14:09 | CON ---
DATE OF TELEMEDICINE CONSULTATION: 03/12/2019 CHIEF COMPLAINT: TIA, possible stroke. HISTORY OF PRESENT ILLNESS: The patient reports she woke up with facial droop on the right side. She has developed a headache on the left side. She used to have TIAs long time ago. Last TIA was in 2005. She has been hypertensive for a number of years. Overall, she basically woke up with facial droop. No other symptoms are described. She has been having some itching in the ear lately on the right side. PAST MEDICAL HISTORY: Positive for hypertension, history of TIA, and peripheral vascular disease. PAST SURGICAL HISTORY: Hysterectomy, gallbladder surgery with gallstones. SOCIAL HISTORY: She smokes at least half pack a day every two days. She is trying to quit. She does not drink alcohol. Lives with her family. FAMILY HISTORY: Mother at 77. Father also had cardiac problems, at 60. The patient has four siblings, all of them have hypertension and diabetes. REVIEW OF SYSTEMS: PULMONARY: Negative for shortness of breath or cough. GI: Negative for nausea, vomiting, or diarrhea. GENITOURINARY: Negative for any dysuria. NEUROLOGIC: Positive for facial droop. DERMATOLOGIC: Negative for any rash. HEMATOLOGIC: Negative for bleeding diathesis. CURRENT LABORATORY DATA: White count 6.9, hemoglobin 13.1, hematocrit 39.9, platelets 256. Chemistry: Sodium 141, potassium 3.5, chloride 111, bicarb 23, BUN 8, creatinine 0.69, glucose 129. Lipid profile is within normal limits. Her other reports include a brain MRI which was completed and her MRI scan shows no acute intracranial abnormality. The patient is waiting for carotid Dopplers. Her CT angiography was also completed yesterday and her CTA does not show any intracranial stenoses, but she does have thyroid nodules. Echocardiogram is pending. PHYSICAL EXAMINATION: VITAL SIGNS: Temperature is 97.6, pulse 70, blood pressure 186/76, respiratory rate 16. GENERAL APPEARANCE: Well-built, well-nourished lady. CHEST: Clear vesicular breathing. CARDIOVASCULAR: S1, S2 heard. No murmurs. ABDOMEN: Soft and nontender. No organomegaly noted. NEUROLOGIC: Higher intellectual functions normal. Orientation to time, place, and person. Appropriate conversation. Cranial nerves 2 through 12, normal extraocular movements. Pupils are 2 mm, reactive to light. Tongue midline. Normal elevation of palate. Normal hearing to finger rub bilaterally and normal sensation of face bilaterally. The patient had slight facial droop on the right side along with difficulty elevating her forehead. Mild left lower motor neuron 7th palsy. Motor exam, bulk normal, tone normal, strength 5/5 throughout in iliopsoas, hamstrings , quadriceps, ankle dorsiflexion, plantar flexion, deltoid, biceps, triceps, wrist extension and flexion, finger extension and flexion bilaterally. Sensory, normal to touch bilaterally. Cerebellar, normal [id number]-qy-akni, [id number]-[id number], and gait not tested. IMPRESSION: The patient is a 63-year-old lady with right facial droop. She is a smoker, has hypertension, has prior history of transient ischemic attacks and she is already on aspirin and Plavix. At this time, diagnosis is most likely very mild cerebrovascular accident, microvascular ischemic infarct, not visible on MRI. This could be secondary to her hypertension and diabetes and/or the patient might have had a slight mild case of Patton palsy on the right side. At this time due to her vascular risk factors, I do not think it is appropriate to start her on Coumadin in the absence of MRI finding of stroke. TREATMENT RECOMMENDATIONS: 1. Consider switching her to an AALIYAH inhibitor, which can be helpful in microvascular ischemic events in hypertension in patients with hypertension. 2. Please continue aspirin with Plavix. 3. Please complete her workup including her echocardiogram. I will check on the results. Call me if you have further questions. Job ID: [id number] MTDD
--- NOTE | 2019-03-12 14:29 | PDOC.HOSPP ---
- Subjective Encounter Date: 03/12/19 Encounter Time: 14:27 Subjective: Pt seen for followup re: microvascular infarct. Says she feels okay. - Objective Vital Signs & Weight: Vital Signs (12 hours) Temp Pulse Resp BP BP Pulse Ox 03/12/19 11:50 97.6 F 70 16 186/76 H 96 03/12/19 09:37 70 196/94 H 03/12/19 09:36 70 196/94 H 03/12/19 07:36 97.7 F 70 18 196/84 H 98 03/12/19 03:30 98.9 F 73 18 201/88 H 97 Weight Weight 156 lb I&O: 03/11/19 03/12/19 03/13/19 06:59 06:59 05:59 Intake Total 120 Balance 120 Result Diagrams: 03/12/19 04:46 03/12/19 04:46 Additional Labs: Accuchecks 03/12/19 03/12/19 11:43 06:29 POC Glucose 219 H 107 labs and MARs reviewed by me EKG Reviewed by me: Yes (Tele: NSR) Hospitalist ROS - Review of Systems Respiratory: denies: cough, dry, shortness of breath, hemoptysis, SOB with excertion, pleuritic pain, sputum, wheezing Cardiovascular: denies: chest pain, palpitations, orthopnea, paroxysmal noc. dyspnea, edema, light headedness - Medication Medications: Active Medications Generic Name Dose Route Start Last Admin Trade Name Freq PRN Reason Stop Dose Admin Amlodipine Besylate 10 mg 03/12/19 09:00 03/12/19 09:37 Norvasc PO 10 mg DAILY LISA Administration Aspirin 325 mg 03/12/19 09:00 03/12/19 09:38 Ecotrin PO 325 mg DAILY LISA Administration Atenolol 50 mg 03/12/19 09:00 03/12/19 09:36 Tenormin PO 50 mg BID LISA Administration Bupropion HCl 150 mg 03/12/19 09:00 03/12/19 09:37 Wellbutrin Sr PO 150 mg DAILY LISA Administration Clonidine 0.1 mg 03/12/19 09:00 03/12/19 09:32 Qahbjeon-Fts-1 Patch TD Not Given Q7DAYS [facility] Clopidogrel Bisulfate 75 mg 03/12/19 09:00 03/12/19 09:34 Plavix PO 75 mg QAM LISA Administration Famotidine 20 mg 03/12/19 09:00 03/12/19 09:37 Pepcid PO 20 mg BID LISA Administration Fenofibrate 145 mg 03/12/19 09:00 03/12/19 09:37 Tricor PO 145 mg QAM LISA Administration Insulin Human Lispro 0 units 03/11/19 21:35 03/12/19 11:53 Humalog SC 3 unit .MILD SLIDING SCALE PRN Administration Mild Correctional Scale Insulin Human Lispro 45 units 03/12/19 09:00 03/12/19 09:32 Humalog SC Not Given BID LISA Mirabegron 25 mg 03/12/19 09:00 03/12/19 09:38 Myrbetriq Er PO 25 mg DAILY LISA Administration Pantoprazole Sodium 40 mg 03/12/19 09:00 03/12/19 09:37 Protonix PO 40 mg QAM LISA Administration Potassium Chloride 20 meq 03/12/19 09:00 03/12/19 09:36 K-Dur PO 20 meq QAM LISA Administration Pregabalin 100 mg 03/12/19 09:00 03/12/19 09:34 Lyrica PO 100 mg TID LISA Administration - Exam General Appearance: NAD Eye: anicteric sclera ENT: moist mucosa Neck: supple Heart: RRR Respiratory: CTAB Gastrointestinal: soft, non-tender Extremities: no clubbing Neurological - other findings: rigth facial droop Psychiatric: normal affect, normal behavior Hosp A/P (1) Cerebral microvascular disease Code(s): I67.9 - CEREBROVASCULAR DISEASE, UNSPECIFIED Status: Acute (2) DM2 (diabetes mellitus, type 2) Status: Chronic (3) CAD (coronary artery disease) Code(s): I25.10 - ATHSCL HEART DISEASE OF [place] CORONARY ARTERY W/O ANG PCTRS Status: Chronic (4) HTN (hypertension) Code(s): I10 - ESSENTIAL (PRIMARY) HYPERTENSION Status: Chronic (5) PAD (peripheral artery disease) Code(s): I73.9 - PERIPHERAL VASCULAR DISEASE, UNSPECIFIED Status: Chronic - Plan DC ARB, start perindopril. Continue aspirin and Plavix. Monitor vital signs, titrate antihypertensives as needed. Continue accuchecks and insulin sliding scale. CAD stable.
[2019-03-12] MEDS ORDERED: Non-Formulary Item 1 EACH (Rosuvastatin Calcium [Rosuvastatin Calcium] 1 TAB) PO SCH (21:00)
[2019-03-12] MEDS ORDERED: FLU VACC TS2019-20(65YR UP)/PF 180 MCG/0.5 ML SYRINGE IM ONE (21:00)
[2019-03-12] MEDS: Rosuvastatin 20 MG TAB PO SCH (21:28)
[2019-03-12] MEDS: Atorvastatin Calcium 40 MG TAB PO SCH (21:30)
[2019-03-12] MEDS: Minoxidil 10 MG TAB PO SCH (22:31)
[2019-03-13] MEDS: Lisinopril 10 MG TAB PO SCH (06:49)
[2019-03-13 07:11] LABS: Cardiac Risk 2.9 (Less than 4.5)
[2019-03-13] MEDS: Pregabalin 50 MG CAP PO SCH ×3 (09:42→22:37)
[2019-03-13] MEDS: Amlodipine 10 MG TAB PO SCH (09:42)
[2019-03-13] MEDS: Bupropion 150 MG SR TAB PO SCH (09:42)
[2019-03-13] MEDS: Clopidogrel Bisulfate 75 MG TAB PO SCH (09:43)
[2019-03-13] MEDS: Fenofibrate Nanocrystallized 145 MG TAB PO SCH (09:43)
[2019-03-13] MEDS: Aspirin 325 mg Enteric Coated Tablet PO SCH (09:43)
[2019-03-13] MEDS: Hydrochlorothiazide 25 MG TAB PO SCH (09:43)
[2019-03-13] MEDS: Atenolol 50 MG TAB PO SCH ×2 (09:43→22:36)
[2019-03-13] MEDS: Famotidine 20 MG TAB PO SCH ×2 (09:43→22:38)
[2019-03-13] MEDS: HumaLOG 300 UNITS/3 ML VIAL SC SCH ×2 (09:47→22:38)
[2019-03-13] MEDS: Potassium Chloride 20 MEQ TAB PO SCH (09:47)
--- NOTE | 2019-03-13 15:58 | PDOC.HOSPP ---
- Subjective Encounter Date: 03/13/19 Encounter Time: 07:40 Subjective: Pt seen for followup re: microvascular cerebral disease. Feels better. - Objective Vital Signs & Weight: Vital Signs (12 hours) Temp Pulse Resp BP BP BP Pulse Ox 03/13/19 11:45 98.6 F 69 20 131/78 99 03/13/19 09:43 81 03/13/19 09:42 81 03/13/19 08:35 98.4 F 81 20 159/98 H 95 03/13/19 08:00 95 03/13/19 06:49 162/76 H 03/13/19 04:00 97.5 F L 71 18 190/93 H 97 Weight Weight 156 lb I&O: 03/12/19 03/13/19 03/14/19 07:59 06:59 06:59 Intake Total Balance Result Diagrams: 03/12/19 04:46 03/12/19 04:46 Additional Labs: Accuchecks 03/13/19 03/13/19 03/12/19 10:26 06:15 23:04 POC Glucose 258 H 149 H 81 03/12/19 03/12/19 03/12/19 22:49 22:41 19:55 POC Glucose 53 L* 43 L* 198 H 03/12/19 17:07 POC Glucose 218 H EKG Reviewed by me: Yes (Tele: NSR) Hospitalist ROS - Review of Systems Cardiovascular: denies: chest pain, palpitations, orthopnea, paroxysmal noc. dyspnea, edema, light headedness Neurological: denies: weakness, numbness, incoordination, change in speech, confusion, seizures - Medication Medications: Active Medications Generic Name Dose Route Start Last Admin Trade Name Jamalq PRN Reason Stop Dose Admin Amlodipine Besylate 10 mg 03/12/19 09:00 03/13/19 09:42 Norvasc PO 10 mg DAILY LISA Administration Aspirin 325 mg 03/12/19 09:00 03/13/19 09:43 Ecotrin PO 325 mg DAILY LISA Administration Atenolol 50 mg 03/12/19 09:00 03/13/19 09:43 Tenormin PO 50 mg BID LISA Administration Atorvastatin Calcium 40 mg 03/12/19 21:00 03/12/19 21:30 Lipitor PO 40 mg HS LISA Administration Bupropion HCl 150 mg 03/12/19 09:00 03/13/19 09:42 Wellbutrin Sr PO 150 mg DAILY [facility] Administration Clonidine 0.1 mg 03/12/19 09:00 03/12/19 09:32 Upjiwbtc-Cyn-7 Patch TD Not Given Q7DAYS [facility] Clopidogrel Bisulfate 75 mg 03/12/19 09:00 03/13/19 09:43 Plavix PO 75 mg QAM LISA Administration Famotidine 20 mg 03/12/19 09:00 03/13/19 09:43 Pepcid PO 20 mg BID [facility] Administration Fenofibrate 145 mg 03/12/19 09:00 03/13/19 09:43 Tricor PO 145 mg QAM [facility] Administration Hydrochlorothiazide 25 mg 03/13/19 09:00 03/13/19 09:43 Hydrochlorothiazide PO 25 mg DAILY [facility] Administration Insulin Human Lispro 0 units 03/11/19 21:35 03/12/19 18:14 Humalog SC 3 unit .MILD SLIDING SCALE PRN Administration Mild Correctional Scale Insulin Human Lispro 45 units 03/12/19 09:00 03/13/19 09:47 Humalog SC Not Given BID [facility] Lisinopril 10 mg 03/13/19 07:30 03/13/19 06:49 Zestril PO 10 mg DAILY-AC LISA Administration Minoxidil 10 mg 03/12/19 21:00 03/12/19 22:31 Minoxidil PO 10 mg HS [facility] Administration Mirabegron 25 mg 03/12/19 09:00 03/13/19 09:43 Myrbetriq Er PO 25 mg DAILY [facility] Administration Pantoprazole Sodium 40 mg 03/12/19 09:00 03/13/19 09:43 Protonix PO 40 mg QAM [facility] Administration Potassium Chloride 20 meq 03/12/19 09:00 03/13/19 09:47 K-Dur PO Not Given QAM LISA Pregabalin 100 mg 03/12/19 09:00 03/13/19 09:42 Lyrica PO 100 mg TID [facility] Administration Rosuvastatin Calcium 40 mg 03/12/19 21:00 03/12/19 21:28 Crestor PO 40 mg HS LISA Administration - Exam General Appearance: NAD Eye: anicteric sclera ENT: normocephalic atraumatic, moist mucosa Neck: supple, no JVD Heart: RRR, no rubs Respiratory: CTAB Gastrointestinal: soft, non-tender Musculoskeletal: normal tone Psychiatric: normal affect, normal behavior Hosp A/P (1) Cerebral microvascular disease Code(s): I67.9 - CEREBROVASCULAR DISEASE, UNSPECIFIED Status: Acute (2) Hypoglycemia Code(s): E16.2 - HYPOGLYCEMIA, UNSPECIFIED Status: Acute (3) DM2 (diabetes mellitus, type 2) Status: Chronic (4) CAD (coronary artery disease) Code(s): I25.10 - ATHSCL HEART DISEASE OF [place] CORONARY ARTERY W/O ANG PCTRS Status: Chronic (5) HTN (hypertension) Code(s): I10 - ESSENTIAL (PRIMARY) HYPERTENSION Status: Chronic (6) PAD (peripheral artery disease) Code(s): I73.9 - PERIPHERAL VASCULAR DISEASE, UNSPECIFIED Status: Chronic - Plan out of bed/ambulate Pt hypoglycemic last night, confirm home insulin doses and restart. Continue accuchecks and insulin sliding scale. Continue perindopril. Continue aspirin and Plavix. Monitor vital signs, titrate antihypertensives as needed. CAD stable.
[2019-03-13] MEDS: Rosuvastatin 20 MG TAB PO SCH (22:35)
[2019-03-13] MEDS: Atorvastatin Calcium 40 MG TAB PO SCH (22:37)
[2019-03-13] MEDS: Minoxidil 10 MG TAB PO SCH (22:38)
[2019-03-13] MEDS: HumuLIN 70/30 (300 UNITS/3 ML VIAL) SC SCH (22:39)
[2019-03-14] MEDS: Amlodipine 10 MG TAB PO SCH (09:28)
[2019-03-14] MEDS: Atenolol 50 MG TAB PO SCH (09:28)
[2019-03-14] MEDS: Lisinopril 10 MG TAB PO SCH (09:28)
[2019-03-14] MEDS: Hydrochlorothiazide 25 MG TAB PO SCH (09:28)
[2019-03-14] MEDS: Clopidogrel Bisulfate 75 MG TAB PO SCH (09:29)
[2019-03-14] MEDS: Famotidine 20 MG TAB PO SCH (09:29)
[2019-03-14] MEDS: Bupropion 150 MG SR TAB PO SCH (09:29)
[2019-03-14] MEDS: Aspirin 325 mg Enteric Coated Tablet PO SCH (09:29)
[2019-03-14] MEDS: Pregabalin 50 MG CAP PO SCH (09:29)
[2019-03-14] MEDS: Potassium Chloride 20 MEQ TAB PO SCH (09:30)
[2019-03-14] MEDS: Fenofibrate Nanocrystallized 145 MG TAB PO SCH (09:30)
[2019-03-14] MEDS: HumaLOG 300 UNITS/3 ML VIAL SC SCH (10:07)
[2019-03-14] MEDS: HumuLIN 70/30 (300 UNITS/3 ML VIAL) SC SCH (10:25)
[2019-03-14 12:03] VITALS: BP 143/102; TEMP 98.1
--- NOTE | 2019-03-15 08:19 | DIS ---
DATE OF ADMISSION: 03/11/2019 DATE OF DISCHARGE: 03/14/2019 PRIMARY CARE PROVIDER: Dr. Jarred Schulte. DISCHARGE DIAGNOSES: 1. Cerebral microvascular disease. 2. Hypoglycemia. CONDITION OF PATIENT ON THE DAY OF DISCHARGE: Stable. I assessed Ms. Lindsey on the day of discharge. She denies any chest pain or shortness of breath. Vital signs are stable. S1 and S2 are heard, regular. Lungs are clear to auscultation bilaterally. CONSULTATIONS DURING THIS HOSPITALIZATION: Neurology, Dr. Shea. DISCHARGE MEDICATIONS: 1. Humalog 75/25 insulin dose was decreased to 30 units 2 times a day. 2. Losartan has been discontinued. 3. Aspirin dose has been increased to 325 mg daily. 4. Lisinopril has been started at 10 mg daily. Otherwise, no change was made to her pre-admission home medications as dictated by Dr. Lynn in his history and physical note dated 03/11/2019. HOSPITAL COURSE: Ms. Lindsey is a pleasant 63-year-old lady, who was admitted to [facility] on 03/11/2019, for suspected stroke. Please refer to Dr. Lynn's history and physical note dated 03/11/2019, for further details. MRI of the brain did not show any acute intracranial abnormality. 2D echocardiogram showed left ventricular ejection fraction of 50% to 55%, mildly dilated left atrium, mildly increased left ventricular size, impaired relaxation compatible with diastolic dysfunction, mild aortic regurgitation, mild mitral regurgitation, and mild tricuspid regurgitation. She was seen by Neurology Service and was diagnosed with microvascular cerebral disease. She was recommended switch to AALIYAH inhibitor instead of ARB. She was started on lisinopril. She is being discharged home in a stable condition. Her blood sugars were low at times during this hospitalization. Her insulin dose has been decreased. She has been advised to check her blood sugars 3 times a day and show the readings to her primary care provider. Fasting lipid profile during this hospitalization showed triglycerides 76, cholesterol 117, LDL cholesterol 62, and HDL cholesterol 40. Many thanks for allowing me to participate in your patient's care. Please feel free to contact me with any questions or concerns. POST ACUTE CARE FOLLOWUP: The patient is advised to follow up with primary care provider in 3 days time. DISCHARGE DESTINATION: Home. TIME SPENT: Total amount of time spent coordinating this discharge: 32 minutes. Job ID: [id number]
== END 2019-03-14 13:44 | disposition home or self-care (01) | DRG 66 ==
LOC: ERS 19:28 → 2SE 22:18
PROVIDERS: ADMIT Internal Medicine; ATTEND Internal Medicine
DX: I63.9 Cerebral infarction, unspecified (principal); I08.3 Combined rheumatic disorders of mitral, aortic and tricuspid valves; I25.10 Atherosclerotic heart disease of native coronary artery without angina pectoris; E11.51 Type 2 diabetes mellitus with diabetic peripheral angiopathy without gangrene; E78.5 Hyperlipidemia, unspecified; F17.210 Nicotine dependence, cigarettes, uncomplicated; I16.0 Hypertensive urgency; R29.810 Facial weakness; E11.649 Type 2 diabetes mellitus with hypoglycemia without coma; R29.703 NIHSS score 3; R40.2362 Coma scale, best motor response, obeys commands, at arrival to emergency department; R40.2142 Coma scale, eyes open, spontaneous, at arrival to emergency department; R40.2252 Coma scale, best verbal response, oriented, at arrival to emergency department; Z86.73 Personal history of transient ischemic attack (TIA), and cerebral infarction without residual deficits; Z95.828 Presence of other vascular implants and grafts; Z90.710 Acquired absence of both cervix and uterus; Z90.49 Acquired absence of other specified parts of digestive tract; Z79.899 Other long term (current) drug therapy; Z79.82 Long term (current) use of aspirin; Z79.4 Long term (current) use of insulin; Z88.6 Allergy status to analgesic agent; Z88.5 Allergy status to narcotic agent; Z88.8 Allergy status to other drugs, medicaments and biological substances; Z23 Encounter for immunization
CPT/HCPCS: 36415; 36416; 70551; 80048; 80061; 85007; 85027; 90471; 90662; 93306; G0008; J1815

== ENCOUNTER 2020-05-18 19:30 | Outpatient (CLI) | payer MEDICARE | END 2020-05-18 19:31 | disposition home or self-care (01) | LOC: SLEEPLAB 19:30 | PROVIDERS: ATTEND Family Medicine | DX: G47.33 Obstructive sleep apnea (adult) (pediatric) (principal); E11.9 Type 2 diabetes mellitus without complications; I67.9 Cerebrovascular disease, unspecified; R09.89 Other specified symptoms and signs involving the circulatory and respiratory systems; R51.9 Headache, unspecified; R06.83 Snoring; I10 Essential (primary) hypertension; R53.83 Other fatigue; I25.10 Atherosclerotic heart disease of native coronary artery without angina pectoris; G47.10 Hypersomnia, unspecified | CPT/HCPCS: 95810 ==